=== PATIENT | female | born 1960 | race Two or more races ===

== ENCOUNTER 2025-03-26 08:06 | Emergency (ER) | payer OTHER, MEDICAID ==
[~2025-03-26] VITALS: Ht 162.6 cm; Wt 73.0 kg
[2025-03-26] MEDS: SODIUM CHLORIDE 0.9% 500 ML IVB ONE (09:00)
--- NOTE | 2025-03-26 09:23 | ED.PDOC ---
GI ASSESSMENT HPI Comments 64-year-old female brought in by EMS presents with a chief complaint of abdominal pain x 2 days with associated stress. Patient states that her pain is localized to her RUQ, radiating to her back, describes as cramping sensation. Patient reports that she has been under a lot more stress recently since the passing of both her parents suddenly. Patient denies any nausea, vomiting, or diarrhea. No other symptoms or modifying factors present at this time. 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 Hx Family History Family History: Reviewed,noncontributory to illness Social History Smoker: Non-Smoker Alcohol: Denies ETOH Use Drugs: Denies Drug Use Lives In: Home Constitutional: denies: chills, diaphoresis, fatigue, fever, malaise, sweats, weakness, others EENTM: denies: blurred vision, double vision, ear bleeding, ear discharge, ear drainage, ear pain, ear ringing, eye pain, eye redness, hearing loss, mouth pain, mouth swelling, nasal discharge, nose bleeding, nose congestion, nose pain, photophobia, tearing, throat pain, throat swelling, voice changes, others Respiratory: denies: cough, hemoptysis, orthopnea, SOB at rest, shortness of breath, SOB with excertion, stridor, wheezing, others Cardiovascular: denies: chest pain, dizzy spells, diaphoresis, Dyspnea on exertion, edema, irregular heart beat, left arm pain, lightheadedness, palpitations, PND, syncope, others Gastrointestinal: reports: abdominal pain; denies: abdomen distended, blood streaked bowels, constipated, diarrhea, dysphagia, difficulty swallowing, hematemesis, melena, nausea, poor appetite, poor fluid intake, rectal bleeding, rectal pain, vomiting, others Genitourinary: denies: abnormal vagina bleeding, burning, dyspareunia, dysuria, flank pain, frequency, hematuria, incontinence, pain, , vagina discharge, urgency, others Neurological: denies: dizziness, fainting, headache, left sided numbness, left sided weakness, numbness, paresthesia, pre-existing deficit, right sided numbness, right sided weakness, seizure, speech problems, tingling, tremors, weakness, others Musculoskeletal: denies: back pain, gout, joint pain, joint swelling, muscle pain, muscle stiffness, neck pain, others Integumetry: denies: bruises, change in color, change in hair/nails, dryness, laceration, lesions, lumps, rash, wounds, others Allergic/Immunocompromised: denies: Difficulty Healing, Frequent Infections, Hives, Itching, others Hematologic/Lymphatic: denies: anemia, blood clots, easy bleeding, easy bruising, swollen glands, others Endocrine: denies: excessive hunger, excessive sweating, excessive thirst, excessive urination, flushing, intolerance to cold, intolerance to heat, unexplained weight gain, unexplained weight loss, others Psychiatric: denies: anxiety, bipolar disorder, depression, hopeless, panic disorder, schizophrenia, sleepless, suicidal, others All Other Systems: Reviewed and Negative Physical Exam General Appearance: Moderate Distress, Normal HEENT: Normal ENT Inspection, PERRL/EOMI, Pharynx Normal, TMs Normal Neck: Full Range of Motion, Non-Tender, Normal, Normal Inspection Respiratory: Chest Non-Tender, Lungs Clear, No Accessory Muscle Use, No Respiratory Distress, Normal Breath Sounds Cardiovascular: No Edema, No JVD, No Murmur, No Gallop, Normal Peripheral Pulse s, Regular Rate/Rhythm Breast Exam: Deferred Gastrointestinal: Epigastric, No Organomegaly, Non Tender, No Pulsatile Mass, Normal Bowel Sounds, Rebound, RUQ, Soft, Tenderness Genitalia: Deferred Pelvic: Deferred Rectal: Deferred Extremities: No calf tenderness, Normal capillary refill, Normal inspection, Normal range of motion, Non-tender, No pedal edema Musculoskeletal : Apperance: Normal Neurologic: Alert, 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 Was a procedure done?: No GI differential Dx Differential Diagnosis: Cholecystitis, Gastritis/PUD, Gastroenteritis, Pancreatitis, UTI, Dehydration, Diabetes/ DKA, Drug toxicity, Electrolyte Imbalance, Anemia X-Ray, Labs, Meds, VS Vital Signs Date Time Temp Pulse Resp B/P (MAP) Pulse Ox O2 Delivery O2 Flow Rate FiO2 03/26/25 13:22 68 18 110/60 (77) 98 03/26/25 13:22 84 18 98 Room Air 03/26/25 08:17 98.9 92 18 146/90 100 98.9 03/26/25 08:15 91 Lab Test 03/26/25 14:58 03/26/25 11:41 Range/Units Urine Color Pending Urine Clarity Pending Urine pH Pending Urine Specific [place] Pending Urine Protein Pending Urine Ketones Pending Urine Blood Pending Urine Nitrite Pending Urine Bilirubin Pending Urine Urobilinogen Pending Urine Leukocyte Esterase Pending Urine RBC Pending Urine Microscopic WBC Pending Urine Squamous Epithelial Cells Pending Urine Bacteria Pending Urine Glucose Pending White Blood Count 6.4 4.4-10.8 10^3/uL Red Blood Count 4.53 4.0-5.20 10^6/uL Hemoglobin 14.3 12.2-16.2 g/dL Hematocrit 41.3 36.0-46.0 % Mean Corpuscular Volume 91.0 80.0-100.0 fL Mean Corpuscular Hemoglobin 31.5 28.0-32.0 pg Mean Corpuscular Hemoglobin Concent 34.6 32.0-36.0 g/dL Red Cell Distribution Width 13.3 11.8-14.3 % Platelet Count 376 140-450 10^3/uL Mean Platelet Volume 7.7 6.9-10.8 fL Neutrophils (%) (Auto) 67.8 37.0-80.0 % Lymphocytes (%) (Auto) 25.5 10.0-50.0 % Monocytes (%) (Auto) 4.8 0.0-12.0 % Eosinophils (%) (Auto) 1.0 0.0-7.0 % Basophils (%) (Auto) 0.9 0.0-2.0 % Neutrophils # (Auto) 4.4 1.6-8.6 10 ^3/uL Lymphocytes # (Auto) 1.6 0.4-5.4 10 ^3/uL Monocytes # (Auto) 0.3 0-1.3 10 ^3/uL Eosinophils # (Auto) 0.1 0-0.8 10 ^3/uL Basophils # (Auto) 0.1 0-0.2 10 ^3/uL Nucleated Red Blood Cells 0.1 % Sodium Level 142 136-145 mmol/L Potassium Level 4.1 3.5-5.1 mmol/L Chloride Level 108 H 98-107 mmol/L Carbon Dioxide Level 25 20-31 mmol/L Anion Gap 9 5-15 Blood Urea Nitrogen 16 9-23 mg/dL Creatinine 0.93 0.550-1.02 mg/dL Glomerular Filtration Rate Calc 69 >90 mL/min BUN/Creatinine Ratio 17.2 10.0-20.0 Serum Glucose 107 H 74-106 mg/dL Calcium Level 9.8 8.7-10.4 mg/dL Magnesium Level 2.3 1.6-2.6 mg/dL Total Bilirubin 0.4 0.2-1.0 mg/dL Aspartate Amino Transferase (AST) 24 13-40 U/L Alanine Aminotransferase (ALT) 25 7-40 U/L Alkaline Phosphatase 64 46-116 U/L Total Protein 7.4 5.7-8.2 g/dL Albumin 4.9 H 3.2-4.8 g/dL Lipase 45 12-53 U/L Current Medications Medications (Trade) Dose Ordered Sig/Jani Route Start Time Stop Time Status Last Admin Metoclopramide HCl (Reglan Injection) 10 mg ONCE ONCE IV 03/26/25 09:00 03/26/25 09:03 DC 03/26/25 12:45 Sodium Chloride 500 ml @ 500 mls/hr Q1H ONCE IVB 03/26/25 09:00 03/26/25 09:59 DC 03/26/25 09:00 Ketorolac Tromethamine (Toradol Injection) 30 mg ONCE ONCE IV 03/26/25 09:00 03/26/25 09:03 DC 03/26/25 12:46 X-Ray, Labs, Meds, VS Comment Patient came in with a abdominal cramps and pain she is 64 years old EKG shows normal sinus rhythm at 91 The ultrasound for gallbladder stone is negative but the patient has hepatic steatosis through ultrasound CBC is normal CMP CMP negative Lipase 45 Magnesium 2.3 Patient has been medicated Patient will be discharge child home Time of 1ST Reevaluation: 09:14 Reevaluation 1ST: Unchanged Time of 2ND Reevaluation: 15:03 Reevaluation 2ND: Improved Consultation: PCP Patient Education/Counseling: Diagnosis, Treatment, Prognosis, Need For Follow Up Family Education/Counseling: Diagnosis, Treatment, Prognosis, Need For Follow U p, No Family Present SEPSIS Sepsis Screen Date sepsis recognized/suspect: Mar 26, 2025 Time Sepsis recognized/suspect: 809 Recent Procedure: No On Antibiotic Therapy: No Respiratory Rate >20: No Heart Rate >90: No Temp<36 C (96.8 F) or >38.3 C: No SBP <90 or MAP <65 mmHG: No New Acute Mental Status Change: No Is the patient on CPAP, BIPAP,: No Physician Orders Electrocardigram (03/26/25 08:18) Urinalysis (03/26/25 09:00) Heplock Iv (03/26/25 09:00) Gallbladder (03/26/25 09:00) Vital Signs Date Time Temp Pulse Resp B/P (MAP) Pulse Ox O2 Delivery O2 Flow Rate FiO2 03/26/25 13:22 68 18 110/60 (77) 98 03/26/25 13:22 84 18 98 Room Air 03/26/25 08:17 98.9 92 18 146/90 100 98.9 03/26/25 08:15 91 Laboratory Tests Test 03/26/25 11:41 White Blood Count 6.4 10^3/uL (4.4-10.8) Medications Medications Dose Ordered Sig/Jani Route Start Time Stop Time Status Last Admin Dose Admin Ketorolac Tromethamine 30 mg ONCE ONCE IV 03/26/25 09:00 03/26/25 09:03 DC 03/26/25 12:46 Metoclopramide HCl 10 mg ONCE ONCE IV 03/26/25 09:00 03/26/25 09:03 DC 03/26/25 12:45 Sodium Chloride 500 ml @ 500 mls/hr Q1H ONCE IVB 03/26/25 09:00 03/26/25 09:59 DC 03/26/25 09:00 Departure 1 Departure Time of Disposition: 15:03 Impression: Primary Impression: Biliary colic Disposition: 01 HOME / SELF CARE / HOMELESS Condition: Fair Additional Instructions: Push fluids and only full liquid diet for 24 hours e-Prescriptions Metoclopramide Hcl (Reglan) 10 Mg Tab 10 MG PO TID for 5 Days, #15 TAB Prov: JAYDEN DOMINGUEZ MD 03/26/25 Discharged With: Self Critical Care Note Critical Care Time?: No Stability Stability form required: No Heart Score Heart Score: Heart Score Response (Comments) Value History N/A 0 EKG N/A 0 Age 45-64 1 Risk Factors 1 or 2 risk factors 1 Troponin N/A 0 Total 2 I personally scribed for JAYDEN DOMINGUEZ MD ([email or web address]) on 03/26/25 at 09:23. Electronically submitted by Osvaldo Gabriel ([email or web address]). JAYDEN DOMINGUEZ MD Mar 26, 2025 09:23
--- NOTE | 2025-03-26 09:56 | DVH ---
INDICATION: Biliary colic TECHNIQUE: Multiple real-time sonographic images were obtained of the right upper quadrant. COMPARISON: None FINDINGS: The liver demonstrates heterogeneous echotexture without focal mass lesions. The liver daphney ures 15cm. There is no intrahepatic or extrahepatic ductal dilatation. The common duct measures 0. 4 mm. GALLSTONES. The gallbladder wall measures 0.2 mm and is within normal limits. The right kidney measures 11 cm. The right kidney is normal in contour, size, and shape. The echogen icity is normal. There is no hydronephrosis. The pancreas is not well visualized due to overlying bowel gas. IMPRESSION: No sonographic evidence of gallstones or acute cholecystitis. HEPATIC STEATOSIS. GALLSTONES
[2025-03-26 12:06] LABS: Hematocrit 41.3 % (36.0-46.0); Hemoglobin 14.3 g/dL (12.2-16.2); Mean Corpuscular Hemoglobin 31.5 pg (28.0-32.0); Mean Corpuscular Volume 91.0 fL (80.0-100.0); Nucleated Red Blood Cells % 0.1 %
[2025-03-26 12:24] LABS: Alanine Aminotransferase 25 U/L (7-40); Alkaline Phosphatase 64 U/L (46-116); Anion Gap 9 (5-15); BUN/Creatinine Ratio 17.2 (10.0-20.0); Blood Urea Nitrogen 16 mg/dL (9-23); Calcium 9.8 mg/dL (8.7-10.4); Carbon Dioxide 25 mmol/L (20-31); Lipase 45 U/L (12-53); Magnesium 2.3 mg/dL (1.6-2.6); Potassium 4.1 mmol/L (3.5-5.1); Sodium 142 mmol/L (136-145); Total Protein 7.4 g/dL (5.7-8.2)
[2025-03-26 12:25] LABS: Albumin 4.9 g/dL (3.2-4.8); Bilirubin, Total 0.4 mg/dL (0.2-1.0); Chloride 108 mmol/L (98-107); Glucose 107 mg/dL (74-106)
[2025-03-26] MEDS: METOCLOPRAMIDE HCL 5MG/ml INJ 2ml VIAL IV ONE (12:45)
[2025-03-26] MEDS: KETOROLAC TROMETH 30 MG/ML 1ML VIAL IV ONE (12:46)
[2025-03-26] MEDS ORDERED: METO-281 PO (15:05)
[2025-03-26 15:10] LABS: Urine Protein, UAD Negative (Negative)
[2025-03-26 15:18] VITALS: BP 136/59; PULSE 102; RESP 18; TEMP 97.7; O2SAT 95
--- NOTE | 2025-03-26 18:56 | ECG ---
[facility] Test Date: 2025-03-26 Test Time: 08:13:47 Pat Name: ARLIN BOB Department: [facility] ED Patient ID: [facility]-[id number] Room: Gender: F Cemetery Worker: CYNTHIA : 1960 Requested By: JAYDEN DOMINGUEZ Order Number: [id number] Reading MD: Measurements Intervals [place] Rate: 91 P: 26 PA: 151 QRS: 53 QRSD: 84 T: 55 QT: 366 QTc: 451 Interpretive Statements Sinus rhythm Low voltage, precordial leads Please click the below link to view image of tracing.
== END 2025-03-26 15:24 | disposition home or self-care (01) ==
LOC: EDBD 08:06 → ER 08:06
DX: K80.70 Calculus of gallbladder and bile duct without cholecystitis without obstruction (principal); E11.9 Type 2 diabetes mellitus without complications
CPT/HCPCS: 36415; 76705; 80053; 81001; 82947; 83690; 83735; 85025; 93005; 96361; 96374; 96375; 99285; J1885; J2765; J7040